=== PATIENT | female | born 1975 | race Caucasian/White ===

== ENCOUNTER 2023-08-06 12:59 | Outpatient (CLI) | payer OTHER | END 2023-08-06 13:00 | disposition critical access hospital (66) | LOC: EMS 12:59 | DX: R07.9 Chest pain, unspecified (principal) | CPT/HCPCS: A0425; A0427 ==

== ENCOUNTER 2023-08-06 13:22 | Emergency (ER) | payer OTHER ==
--- NOTE | 2023-08-06 13:34 | ED Physician Documentation ---
History of Present Illness - Stated complaint Stated Complaint: CP - Additonal information Additional information: 47-year-old female presents emergency department for evaluation of chest pain, pressure, discomfort that began about 9 this morning. Over the course of the morning and early afternoon it became more persistent. She had some nausea and a clammy feeling. No vomiting. Denies shortness of air. She states that she has had similar in the past and has been seen at various ERs with a negative work-up. 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 Patient is currently on doxycycline for walking pneumonia that was diagnosed 1 week ago. Family history includes her father who of a sudden cardiac arrest in his early 40s. Patient denies any history of hypertension or diabetes. No history of tobacco or nicotine use. EMS administered the patient 325 of aspirin and nitroglycerin x2 with good resolution of her chest discomfort and at the time of my initial evaluation she is chest pain-free Review of Systems Constitutional: denies: Fever Throat: reports: Reviewed and negative Cardiac: reports: Chest pain / pressure. denies: Pedal edema Respiratory: reports: Reviewed and negative GI: reports: Nausea : reports: Reviewed and negative Skin: reports: Reviewed and negative Musculoskeletal: reports: Reviewed and negative PD PAST MEDICAL HISTORY - Present Medications Home Medications: Ambulatory Orders Medication Instructions Recorded Confirmed Citalopram Hydrobromide [Celexa] 40 mg PO DAILY 08/06/23 08/06/23 Doxycycline [Vibramycin] 100 mg PO BID 08/06/23 08/06/23 Erenumab-Aooe [Aimovig 140 mg SQ UD 08/06/23 08/06/23 Autoinjector] Pantoprazole [Protonix] 40 mg PO DAILY 08/06/23 08/06/23 - Allergies Allergies/Adverse Reactions: Allergies Allergy/AdvReac Type Severity Reaction Status Date / Time No Known Drug Allergies Allergy Verified 08/06/23 13:39 PD ED PE NORMAL - General General: Alert and oriented X 3, No acute distress, Well developed/nourished - HEENT HEENT: Atraumatic, Moist mucous membranes - Neck Neck: Supple, no meningeal sign, No adenopathy - Cardiac Cardiac: RRR, No murmur, Strong equal pulses - Respiratory Respiratory: No respiratory distress, Clear bilaterally - Abdomen Abdomen: Normal bowel sounds, Soft - Back Back: No CVA TTP - Neuro Neuro: Alert and oriented X 3 Eye Opening: Spontaneous Motor: Obeys Commands Verbal: Oriented GCS Score: 15 Results - Vitals Vitals: Vital Signs - 24 hr 08/06/23 08/06/23 08/06/23 13:31 13:45 14:20 Temperature 36.6 C Heart Rate 88 101 H 85 Respiratory 20 22 19 Rate Blood Pressure 139/82 H 138/82 H 122/78 O2 Saturation 100 100 100 08/06/23 08/06/23 08/06/23 14:30 15:05 15:32 Temperature Heart Rate 87 86 80 Respiratory 14 16 18 Rate Blood Pressure 115/69 176/74 H 111/71 O2 Saturation 100 98 100 Oxygen O2 Source Room air - EKG (time done) 1325 EKG releavant findings:: EKG personally interpreted by author of this note. Relevant findings are: Rate: Rate (enter#) (85) Rhythm: NSR [place]: Normal Intervals: Normal SD QRS: Normal Ischemia: Normal ST segments Compare to prior EKG: Old EKG unavailable Computer interpretation: Agree with computer - Labs Labs: Laboratory Tests 08/06/23 08/06/23 08/06/23 13:35 13:35 13:35 WBC 8.2 RBC 4.31 Hgb 12.1 Hct 37.8 MCV 87.7 MCH 28.1 MCHC 32.0 RDW 13.4 Plt Count 272 MPV 11.0 H Neut # (Auto) 4.9 Lymph # (Auto) 2.5 [place] # (Auto) 0.3 Eos # (Auto) 0.4 Baso # (Auto) 0.1 Absolute Nucleated RBC 0.00 Nucleated RBC % 0.0 Sodium 138 Potassium 3.5 Chloride 103 Carbon Dioxide 26 Anion Gap 9.0 BUN 19 Creatinine 1.0 Estimated GFR (MDRD) 59 L Glucose 118 H Calcium 9.3 Total Bilirubin 0.3 AST 17 ALT 23 Alkaline Phosphatase 61 Troponin I High Sens 2.3 Total Protein 6.4 Albumin 4.1 Globulin 2.3 Albumin/Globulin Ratio 1.8 Lipase 17 Serum HCG, Qual NEGATIVE 08/06/23 14:54 WBC RBC Hgb Hct MCV MCH MCHC RDW Plt Count MPV Neut # (Auto) Lymph # (Auto) [place] # (Auto) Eos # (Auto) Baso # (Auto) Absolute Nucleated RBC Nucleated RBC % Sodium Potassium Chloride Carbon Dioxide Anion Gap BUN Creatinine Estimated GFR (MDRD) Glucose Calcium Total Bilirubin AST ALT Alkaline Phosphatase Troponin I High Sens 2.3 Total Protein Albumin Globulin Albumin/Globulin Ratio Lipase Serum HCG, Qual PD Medical Decision Making - ED course Complexity details: reviewed results, re-evaluated patient, d/w patient ED course: 47-year-old female presents emergency department for evaluation of chest pressure and discomfort that began about 9 this morning. She went to work and over the course of the morning it got more uncomfortable with some associated nausea and sweats. EMS was summoned. She was found to have an EKG showing normal sinus rhythm. They administered her 325 of aspirin and gave her 2 nitroglycerin which she reports improved the symptoms. On presentation to the emergency department she was without chest pain or discomfort. Her twelve-lead EKG is interpreted by myself showed no ischemic changes. Chest x-ray is interpreted by the radiologist showed no findings of pneumonia, pneumothorax, pleural effusion. We did obtain routine labs including cardiac biomarkers which per my interpretation were negative. High-sensitivity troponin x2 was negative. Patient is PERC negative. I reevaluated the patient at the bedside. Stated that she still felt somewhat funny but no acute obvious cause for her chest discomfort was seen today. She does have a heart score of 3 putting her at low risk for MACE. But given her age as well as atypical symptoms I do feel that she would benefit from referral for a stress test and/or echocardiogram. I discussed this with the patient. The usual emergent return precautions were discussed for worsening symptoms. Departure - Departure Disposition: 01 Home, Self Care Clinical Impression: Chest pain Qualifiers: Chest pain type: unspecified Qualified Code(s): R07.9 - Chest pain, unspecified Condition: Stable Record reviewed to determine appropriate education?: Yes Instructions: ED Chest Pain Atypical Unkn Cause Comments: L[place] lara are seen today in the emergency department because you developed some chest pain and discomfort this morning. Here in the emergency department your chest x-ray is normal without any findings to suggest pneumonia, pneumothorax or pleural effusion. Your EKG showed a normal sinus rhythm without any ischemic changes or changes that would reflect a heart attack now or at any point in the past. We did check your CBC electrolytes and 2 troponins all of which were essentially normal. Given your age as well as your family history of your father having a heart attack at a very early age I do recommend that you follow closely with the PCP. You would benefit from referral for cardiac stress testing. Please return immediately to the ER if you have any new or worsening symptoms, fainting, sudden severe chest pain or shortness of air.
[2023-08-06 13:44] LABS: BASOPHILS # (AUTO) 0.1 10^3/uL (0.0-0.1); BASOPHILS % (AUTO) 1.2 %; EOSINOPHILS # (AUTO) 0.4 10^3/uL (0.0-0.7); EOSINOPHILS % (AUTO) 4.9 %; HCT - HEMATOCRIT 37.8 % (37.0-47.0); HGB - HEMOGLOBIN 12.1 g/dL (12.0-16.0); LYMPHOCYTES # (AUTO) 2.5 10^3/uL (1.5-3.5); MEAN CORPUSCULAR HEMOGLOBIN 28.1 pg (27.0-31.0); MEAN CORPUSCULAR VOLUME 87.7 fL (81.0-99.0); MONOCYTES # (AUTO) 0.3 10^3/uL (0.0-1.0); MONOCYTES % (AUTO) 3.9 %; NEUTROPHILS # (AUTO) 4.9 10^3/uL (1.5-6.6); NEUTROPHILS % (AUTO) 59.8 %; PLT - PLATELET COUNT 272 10^3/uL (130-450); RED BLOOD COUNT 4.31 10^6/uL (4.20-5.40); RED CELL DISTRIBUTION WIDTH 13.4 % (12.0-15.0); WHITE BLOOD COUNT 8.2 x10^3/uL (4.8-10.8)
--- NOTE | 2023-08-06 13:56 | XRAY Report ---
PROCEDURE: Chest 1 View X-Ray INDICATIONS: Chest Pain TECHNIQUE: One view of the chest was acquired. COMPARISON: None. FINDINGS: Surgical changes and devices: None. Lungs and pleura: No pleural effusions or pneumothorax. Lungs are clear. Mediastinum: Mediastinal contours appear normal. Heart size is normal. Bones and chest wall: No suspicious bony lesions. Overlying soft tissues appear unremarkable. IMPRESSION: No acute cardiopulmonary process. Reviewed by: Donna Hagen MD on 08/06/2023 1:55 PM [facility] Approved by: Donna Hagen MD on 08/06/2023 1:55 PM [facility] Station ID: [id number]
[2023-08-06 14:07] LABS: HCG,QUALITATIVE BLOOD NEGATIVE
[2023-08-06 14:09] LABS: ALBUMIN 4.1 g/dL (3.2-5.5); ALBUMIN/GLOBULIN RATIO 1.8 (1.0-2.2); BILIRUBIN,TOTAL 0.3 mg/dL (0.2-1.0); CALCIUM 9.3 mg/dL (8.5-10.3); POTASSIUM 3.5 mmol/L (3.5-4.5); TOTAL PROTEIN 6.4 g/dL (6.4-8.9)
[2023-08-06 14:18] LABS: TROPONIN I HIGH SENSITIVITY 2.3 ng/L (2.3-14.8)
[2023-08-06 15:41] VITALS: BP 111/71; O2SAT 100
== END 2023-08-06 16:10 | disposition home or self-care (01) ==
LOC: ED 13:22
DX: R07.9 Chest pain, unspecified (principal)
CPT/HCPCS: 36415; 80053; 83690; 84484; 84703; 85025; 93005; 99284